=== PATIENT | female | born 1955 | race Caucasian/White ===

== ENCOUNTER 2023-05-14 05:23 | Emergency (ER) | payer MEDICARE, OTHER, SELFPAY ==
--- NOTE | ~2023-05-14 | CT_ITS ---
EXAMINATION: CT ABDOMEN AND PELVIS WITHOUT CONTRAST CLINICAL INFORMATION: Bilateral kidney stones. COMPARISON: Ultrasound from today TECHNIQUE: Multidetector volumetric imaging was performed from the superior aspect of the liver through the pubic symphysis. Sagittal and coronal reformatted images were obtained on the technologist's workstation. This CT examination was performed using dose optimization techniques as appropriate, variously including the following: *Automated exposure control *Adjustment of mA and/or kV according to patient size (this includes techniques or standardized protocols for targeted exams where dose is matched to indication/reason for exam; i.e. extremities or head) *Use of iterative reconstruction technique DLP: 560 mGy-cm. FINDINGS: LUNG BASES: The visualized lung bases are unremarkable. LIVER, GALLBLADDER, AND BILIARY TREE: The liver is normal in size, shape, and attenuation. No focal hepatic lesion or biliary ductal dilatation is present. The gallbladder is unremarkable with no evidence of radiopaque gallstones, gallbladder wall thickening, or obvious pericholecystic inflammatory changes. PANCREAS: Unremarkable. SPLEEN: Unremarkable. ADRENAL GLANDS: Unremarkable. KIDNEYS AND URETERS: Normal positioning of the kidneys. Cortical thinning at the upper pole of the right kidney. There is mild left hydronephrosis with prominent perinephric stranding. 0.4 cm calculus at the left ureteropelvic junction. This is 16 cm from the posterior axillary line. Additional left lower pole nonobstructing 0.4 cm calculus is 9 cm from the posterior axillary line. There are at least 3 right-sided calculi. The largest is seen anteriorly at the lower pole measuring 1.3 x 0.7 cm, 8.5 cm from the posterior axillary line. This measures 888 Hounsfield units. Right upper pole simple cyst. No specific follow-up recommended. BLADDER: Normally distended without wall thickening. There is a layering 0.3 cm calcification at the left posterior aspect of the bladder lumen. GASTROINTESTINAL TRACT: Small hiatal hernia. Normal caliber small bowel. No obstruction. Normal appendix. Scattered colonic diverticulosis throughout the colon. No wall thickening or adjacent inflammation. No free air or free fluid. ABDOMINAL WALL: No significant hernia is appreciated. LYMPH NODES: Normal. VASCULAR: Normal caliber aorta with mild atherosclerotic calcification. PELVIC VISCERA: The uterus and adnexa are unremarkable. OSSEOUS STRUCTURES: No acute or suspicious osseous abnormality. Mild degenerative change throughout the spine and of both hips. CT/CT kidney stone IMPRESSION: 1. Mild left hydronephrosis with a 0.4 cm calculus at the left ureteropelvic junction. Significant left perinephric stranding. 2. Additional nonobstructing bilateral renal calculi.
--- NOTE | ~2023-05-14 | US_ITS ---
EXAMINATION: US RETROPERITONEAL LIMITED (RENAL ONLY) CLINICAL INFORMATION: Left lower quadrant pain. COMPARISON: None available. TECHNIQUE: Real-time imaging of the kidneys. FINDINGS: RIGHT KIDNEY: 8.2 x 4.4 x 4.8 cm (SAG x AP x TRV). The kidney is normal in size, contour, and echogenicity. Renal cortical thickness is normal. 4 mm upper pole nonobstructing calculus. 9 mm calculus in the midpole. 7 mm nonobstructing calculus in the lower pole. Moderate hydronephrosis. LEFT KIDNEY: 11.6 x 6.9 x 6.5 cm (SAG x AP x TRV). The kidney is normal in size, contour, and echogenicity. Renal cortical thickness is normal. Moderate hydronephrosis. Moderate complex perinephric fluid and stranding. The urinary bladder is relatively well distended. Possible 4 mm calcification at the left ureterovesical junction. A right ureteral jet is seen. US/US renal BI IMPRESSION: Possible 4 mm impacted calculus at the left ureterovesical junction causing moderate left hydronephrosis. Moderate complex left perinephric fluid and stranding possibly represent calyceal rupture. Several right renal calculi including a 9 mm calculus at the midpole with moderate right hydronephrosis. Renal stone protocol CT should be considered for further and more complete evaluation of the above findings.
[2023-05-14 05:48] VITALS: BP 163/97; PULSE 74; RESP 18; TEMP 37.1; O2SAT 99; BMI 25.2
[2023-05-14 06:24] LABS: MANUAL DIFF FLAG NO
[2023-05-14 06:28] LABS: Appearance Urine Turbid; Basophils Percent Auto 0.3 % (0-2); Color Urine BROWN; Eosinophils Percent Auto 0.1 % (0-4); Glucose Urine UA Negative (Negative); Hemoglobin 13.6 g/dl (12.0-16.0); Imm Gran Abs Auto 0.03 X10*3/uL (0.00-0.03); Imm Gran Pct Auto 0.3 % (0.0-0.4); Leukocyte Esterase Urine Moderate (2+) (Negative); Lymphocytes Absolute Auto 1.1 X10*3/uL (1.2-4.9); Lymphocytes Percent Auto 8.9 % (20-40); Mean Corpuscular HGB Conc 32.4 g/dl (31.0-35.0); Mean Corpuscular Hemoglobin 28.8 pg (27.0-33.0); Mean Platelet Volume 9.4 fL (9.4-12.3); Monocytes Absolute Auto 0.6 X10*3/uL (0.1-1.2); Monocytes Percent Auto 4.7 % (2-11); Neutrophils Absolute Auto 10.1 x10*3/uL (2.0-8.3); Neutrophils Percent Auto 85.7 % (45-73); Nitrite Urine Negative (Negative); PH 5.5 (5.0-9.0); Platelet Count 365 X10*3/uL (160-400); Red Blood Count 4.72 X10*6/uL (4.20-5.50); Red Cell Distribution Width 13.2 % (11.0-16.0); Specific Gravity - Urine 1.025 (1.005-1.025); UMIC TRIGGER UACC YES; Urine Blood Large (3+) (Negative); Urine Ketones Negative (Negative); Urine Protein 30 (1+) mg/dL (Neg-Trace); White Blood Count 11.8 X10*3/uL (4.8-10.8)
[2023-05-14 06:30] LABS: UPreg QC Valid YES; Urine Pregnancy NEGATIVE (NEGATIVE)
--- NOTE | 2023-05-14 06:34 | ED.ABDPAIN ---
HPI - Abdominal Pain General Chief Complaint: Abdominal Pain Stated Complaint: left sided pain, discolored urine Time Seen by Provider: 05/14/23 06:31 Source: patient Mode of arrival: ambulatory Limitations: no limitations History of Present Illness HPI narrative: 67 yo female with history of HTN who presents to the ER for evaluation of new onset of painful urination and dark urine that started at 01:00 today. She states she woke up with the urge to urinate at 01:00, and then shortly after at 01:30. She noticed her urine was tea-colored and she had burning with urination. She was unable to sleep much after that. She then developed a dull, aching pain in her left lower portion of her abdomen. She denies any flank pain, nausea, vomiting, diarrhea. She had a normal bowel movement yesterday. She denied any fever or chills. No vaginal discharge or bleed MD elicited complaint: abdominal pain and other (Dysuria) Pertinent past history: none Onset (ago): hour(s) (6) Pain Consistency: constant Location: LLQ Severity: moderate Quality: aching and dull Radiation: none Migration to: no migration Exacerbating factors: other (Urination) Relieving factors: nothing Associated symptoms: other (Increased urinary urgency and frequency, change in urine color) Related Data Previous Rx's Medication Instructions Recorded cefuroxime axetil 500 mg tablet 500 mg PO BID 20 days #40 tabs 05/14/23 naproxen 375 mg tablet 375 mg PO BID #20 tabs 05/14/23 oxycodone 5 mg tablet 5 mg PO Q8H PRN severe pain (scale 05/14/23 score 7-10) #6 tabs prednisone 20 mg tablet 20 mg PO DAILY #3 tabs 05/14/23 tamsulosin 0.4 mg capsule (Flomax) 0.4 mg PO DAILY #14 caps 05/14/23 Allergies Allergy/AdvReac Type Severity Reaction Status Date / Time No Known Allergies Allergy Verified 05/14/23 06:08 Review of Systems Review of Systems Yes all other systems are reviewed and are negative [facility] Social History Social History Alcohol intake: current Alcohol intake frequency: holidays/special occasions only Smoked in Last 30 Days: No Use of substances other than those prescribed or required for medical reasons: No Advance Directives: No Advance Directives Information Provided: Yes Physical Exam ED Vital Signs: Vital Signs - 24 hr 05/14/23 05:48 05/14/23 06:39 05/14/23 08:37 Temperature 98.8 F 99.3 F 99.4 F Pulse Rate 74 68 82 Respiratory Rate 18 16 16 Blood Pressure 163/97 H 222/92 H 193/76 H Pulse Oximetry 99 98 98 Oxygen Delivery Method Room Air Room Air Room Air 05/14/23 10:21 Temperature 98.4 F Pulse Rate 78 Respiratory Rate 16 Blood Pressure 180/85 H Pulse Oximetry 97 Oxygen Delivery Method Room Air BMI result Body Mass Index 25.2 Appearance: Alert. Oriented X3. No acute distress. Head: normocephalic, atraumatic. Eyes: Pupils equal, round and reactive to light. ENT: Pharynx normal. No tonsillar swelling or exudate. Neck: Normal inspection. Neck supple. CVS: Normal heart rate and rhythm. Pulses normal. Respiratory: No respiratory distress. Breath sounds normal. Abdomen: Soft and nontender. +BS x4. No CVA tenderness Skin: Skin warm and dry. Normal skin color. Normal skin turgor. No rashes. Extremities: No lower extremity edema. No joint swelling. Neuro/psych: Oriented X 3. No motor deficit. No sensory deficit. CN II-XII intact. Normal speech and cognition. Course Consultations Consultation #1: Dr. Phan - Medical Decision Making Medical Decision Making MDM Narrative: 67 y/o female with history of hypertension presents the ER for evaluation of increased urinary frequency, dysuria, left lower quadrant pain. On arrival to the ER she is hypertensive to the 220 systolic. She states she is usually on 10 mg of lisinopril daily, has not followed up with her primary care doctor. She denies any headache, chest pain, vision changes. Her renal function is normal on her lab work, 10 mg of oral lisinopril has been ordered. Her urine test shows evidence of infection. She has a mild leukocytosis of 11.8. She is not febrile or tachycardic. She is not septic at this time. Need to rule out infected kidney stone, renal ultrasound has been ordered per patient request, she would like to defer CT scan today. IV fluids, IV ceftriaxone has been ordered. US showing bilateral stones w/ bilateral hydro. Dr. Phan from urology was consulted who recommended CT stone protocol. Images reviewed and d/w Dr. Phan. Patient reports signficiant improvement in her pain. She remains afebrile, not tachycardic. Not septic. De. Phan recommending ceftin x20 days, prednisone, flomax and pain control along with outpatient follow up with her - plan d/w patient who is in agreement. return precautions discussed as well. comfortable w/ d/c home Differential Diagnosis Differential Diagnoses: The differential diagnosis associated with the presentation includes UTI, pyelonephritis, kidney stone, diverticulitis Admission/Observation Consideration of admission/observation: Escalation of care including admission/observation considered considered admission given CT findings, however patient symptomatically improved so she was able to be safely discharged home with plan for close outpatient follow up Consult Healthcare Provider Management of the patient was discussed with: [employer] Dr. Phan Lab Data MDM Lab Attestation statement: I reviewed the patient's lab results. mild leukocytosis, normal kidney function 05/14/23 06:18 05/14/23 06:18 Labs: Lab Results 05/14/23 05/14/23 05/14/23 Range/Units 06:18 06:18 06:18 WBC 11.8 H (4.8-10.8) X10*3/uL RBC 4.72 (4.20-5.50) X10*6/uL Hgb 13.6 (12.0-16.0) g/dl Hct 42.0 (37.0-47.0) % MCV 89.0 (80.0-98.0) fL MCH 28.8 (27.0-33.0) pg MCHC 32.4 (31.0-35.0) g/dl RDW 13.2 (11.0-16.0) % Plt Count 365 (160-400) X10*3/uL MPV 9.4 (9.4-12.3) fL Immature Gran % (Auto) 0.3 (0.0-0.4) % Neut % (Auto) 85.7 H (45-73) % Lymph % (Auto) 8.9 L (20-40) % [place] % (Auto) 4.7 (2-11) % Eos % (Auto) 0.1 (0-4) % Baso % (Auto) 0.3 (0-2) % Lymph # (Auto) 1.1 L (1.2-4.9) X10*3/uL [place] # (Auto) 0.6 (0.1-1.2) X10*3/uL Eos # (Auto) 0.0 (0.0-0.4) X10*3/uL Baso # (Auto) 0.0 (0.0-0.2) X10*3/uL Abs Immat Gran (auto) 0.03 (0.00-0.03) X10*3/uL Absolute Neuts (auto) 10.1 H (2.0-8.3) x10*3/uL Absolute Nucleated RBC 0.000 (0.0-0.012) X10*3/uL Nucleated RBC % (auto) 0.0 (0.0-0.2) /100WBC Sodium 139 (135-145) mmol/L Potassium 3.8 (3.3-5.1) mmol/L Chloride 106 (96-108) mmol/L Carbon Dioxide 23 (22-29) mmol/L Anion Gap 14 (12-20) BUN 20 H (9-16) mg/dL Creatinine 1.05 (0.5-1.4) mg/dL Estim Creat Clear Calc 49.3 Estimated GFR 52 Random Glucose 126 H (60-115) mg/dL Calcium 9.7 (8.4-10.2) mg/dL Urine Color BROWN Urine Appearance Turbid Urine pH 5.5 (5.0-9.0) Ur Specific Leopold 1.025 (1.005-1.025) Urine Protein 30 (1+) H (Neg-Trace) mg/dL Urine Glucose (UA) Negative (Negative) mg/dL Urine Ketones Negative (Negative) mg/dL Urine Blood Large (3+) H (Negative) Urine Nitrite Negative (Negative) Ur Leukocyte Esterase Moderate (2+) H (Negative) Urine RBC >20 H (0-2) /HPF Urine WBC 21-50 H (0-5) /HPF Ur Squamous Epith Cells 3-5 (0-2) /HPF Urine Bacteria 2+ (None Seen) Hyaline Casts 0-2 (0-2) /LPF Urine Test (NEGATIVE) 05/14/23 Range/Units 06:18 WBC (4.8-10.8) X10*3/uL RBC (4.20-5.50) X10*6/uL Hgb (12.0-16.0) g/dl Hct (37.0-47.0) % MCV (80.0-98.0) fL MCH (27.0-33.0) pg MCHC (31.0-35.0) g/dl RDW (11.0-16.0) % Plt Count (160-400) X10*3/uL MPV (9.4-12.3) fL Immature Gran % (Auto) (0.0-0.4) % Neut % (Auto) (45-73) % Lymph % (Auto) (20-40) % [place] % (Auto) (2-11) % Eos % (Auto) (0-4) % Baso % (Auto) (0-2) % Lymph # (Auto) (1.2-4.9) X10*3/uL [place] # (Auto) (0.1-1.2) X10*3/uL Eos # (Auto) (0.0-0.4) X10*3/uL Baso # (Auto) (0.0-0.2) X10*3/uL Abs Immat Gran (auto) (0.00-0.03) X10*3/uL Absolute Neuts (auto) (2.0-8.3) x10*3/uL Absolute Nucleated RBC (0.0-0.012) X10*3/uL Nucleated RBC % (auto) (0.0-0.2) /100WBC Sodium (135-145) mmol/L Potassium (3.3-5.1) mmol/L Chloride (96-108) mmol/L Carbon Dioxide (22-29) mmol/L Anion Gap (12-20) BUN (9-16) mg/dL Creatinine (0.5-1.4) mg/dL Estim Creat Clear Calc Estimated GFR Random Glucose (60-115) mg/dL Calcium (8.4-10.2) mg/dL Urine Color Urine Appearance Urine pH (5.0-9.0) Ur Specific Leopold (1.005-1.025) Urine Protein (Neg-Trace) mg/dL Urine Glucose (UA) (Negative) mg/dL Urine Ketones (Negative) mg/dL Urine Blood (Negative) Urine Nitrite (Negative) Ur Leukocyte Esterase (Negative) Urine RBC (0-2) /HPF Urine WBC (0-5) /HPF Ur Squamous Epith Cells (0-2) /HPF Urine Bacteria (None Seen) Hyaline Casts (0-2) /LPF Urine Test NEGATIVE (NEGATIVE) Independent Interpretation I performed an independent interpretation of an: Ultrasound and CT Scan Interpretation: US reviewed - stones and hydro appreciated, agree w/ radiology read CT scan reviewed - distal ureteral stone w/ mild hydro, agree w/ radiology read Radiology Impression Discussion of test interpretation with radiology: I have reviewed the radiologist's reading. Radiologist Impression: US/US renal BI IMPRESSION: Possible 4 mm impacted calculus at the left ureterovesical junction causing moderate left hydronephrosis. Moderate complex left perinephric fluid and stranding possibly represent calyceal rupture. ? Several right renal calculi including a 9 mm calculus at the midpole with moderate right hydronephrosis. ? Renal stone protocol CT should be considered for further and more complete evaluation of the above findings. ?CT/CT kidney stone IMPRESSION: 1.? Mild left hydronephrosis with a 0.4 cm calculus at the left ureteropelvic junction. Significant left perinephric stranding. 2.? Additional nonobstructing bilateral renal calculi. Prescription Management I considered prescription management with: Pain Medication, Antibiotic and Other (flomax and steroids) Chronic Conditions Patient?s care impacted by: Hypertension poorly controlled BP Medications Administered Discontinued Medications Generic Name Dose Route Start Last Admin Trade Name Freq PRN Reason Stop Dose Admin Acetaminophen 975 mg 05/14/23 07:45 05/14/23 07:55 Acetaminophen 325 Mg Tablet PO 05/14/23 07:46 975 mg ONCE ONE Administration Sodium Chloride 1,000 mls @ 999 mls/hr 05/14/23 06:45 05/14/23 07:54 Ns IVCONT 05/14/23 07:45 Infused .Q1H1M KARELY Infusion Ceftriaxone Sodium 1 gm/ 50 mls @ 100 mls/hr 05/14/23 06:41 05/14/23 07:54 Sodium Chloride IV 05/14/23 07:10 Infused ONCE ONE Infusion Sodium Chloride 500 mls @ 500 mls/hr 05/14/23 11:00 05/14/23 12:19 Ns IV 05/14/23 11:59 Infused .Q1H KARELY Infusion Ketorolac Tromethamine 15 mg 05/14/23 07:45 05/14/23 07:55 Ketorolac Tromethamine 15 Mg/Ml Vial IVPUSH 05/14/23 07:46 15 mg ONCE ONE Administration Lisinopril 10 mg 05/14/23 06:51 05/14/23 07:18 Lisinopril 10 Mg Tablet PO 05/14/23 06:52 10 mg ONCE ONE Administration Protocol Critical Care Time Critical Care Time Critical Care Time: Yes Total Critical Care Time: 36 Attestation: I have personally provided critical care time exclusive of time spent on separately billable procedures. Time includes review of lab data, radiology results, discussion with consultants, and monitoring for potential decompensation. Intervention performed as documented. Discharge Plan Discharge Clinical Impression: Hydronephrosis with renal calculous obstruction, Acute UTI Patient Disposition: Home, Self-Care Instructions: Urinary Tract Infection in Women (DC), Ureteral Stones (ED) Additional Instructions: CT scan today showed a 0.4cm stone down near the bladder. You also have a UTI Take the prescribed medications as directed per recommendations of the Urology doctor Take the prescribed antibiotic medication as directed - start it tonight. you were given 1st dose today in the ER. Follow up with Urology - call for an appointment. they are aware of your case If you develop new or worsening symptoms call 911 or come back to the ER for further evaluation. Prescriptions: New prednisone 20 mg tablet 20 mg PO DAILY Qty: 3 0RF naproxen 375 mg tablet 375 mg PO BID Qty: 20 0RF tamsulosin [Flomax] 0.4 mg capsule 0.4 mg PO DAILY Qty: 14 0RF cefuroxime axetil 500 mg tablet 500 mg PO BID 20 Days Qty: 40 0RF oxycodone 5 mg tablet 5 mg PO Q8H PRN (Reason: severe pain (scale score 7-10)) Qty: 6 0RF Rx Instructions: Partial Fill upon patient request. Referrals: [facility] [place] [facility] [Provider Group] (uti, stone w/ hydro) Interventions: ED Discharge Assessment Last Done: 05/14/23 12:19 Discharge Date/Time: 05/14/23 12:20
[2023-05-14 06:36] LABS: Bacteria Urine 2+ (None Seen); Hyaline Casts Urine 0-2 /LPF (0-2); RBC Urine >20 /HPF (0-2); UACC Culture Trigger YES; WBC Urine 21-50 /HPF (0-5)
[2023-05-14 06:39] VITALS: BP 222/92; PULSE 68; RESP 16; TEMP 37.4; O2SAT 98
[2023-05-14 06:47] LABS: Anion Gap 14 (12-20); Blood Urea Nitrogen 20 mg/dL (9-16); Calcium 9.7 mg/dL (8.4-10.2); Carbon Dioxide 23 mmol/L (22-29); Chloride 106 mmol/L (96-108); Creatinine Clr Calc Pharmacy 49.3; Estimated Glomerular Filt Rate 52; Glucose Random 126 mg/dL (60-115); Potassium 3.8 mmol/L (3.3-5.1); Sodium 139 mmol/L (135-145)
[2023-05-14] MEDS: cefTRIAXone sodium 1 GM in 0.9 % Sodium Chloride 50 ML IV (06:53)
[2023-05-14] MEDS: 0.9 % Sodium Chloride 1,000 ML 999 ML IVCONT (06:53)
[2023-05-14] MEDS: lisinopriL 10 MG TABLET PO (07:18)
[2023-05-14] MEDS: Acetaminophen 325 MG TABLET 975 MG PO (07:55)
[2023-05-14] MEDS: Ketorolac Tromethamine 15 MG/ML VIAL IVPUSH (07:55)
[2023-05-14 08:37] VITALS: BP 193/76; PULSE 82; RESP 16; TEMP 37.4; O2SAT 98
[2023-05-14 10:21] VITALS: BP 180/85; PULSE 78; RESP 16; TEMP 36.9; O2SAT 97
[2023-05-14] MEDS: 0.9 % Sodium Chloride 500 ML IV (11:25)
== END 2023-05-14 12:20 | disposition home or self-care (01) ==
PROVIDERS: Emergency Provider Internal Medicine
DX: N13.2 Hydronephrosis with renal and ureteral calculous obstruction (principal); N39.0 Urinary tract infection, site not specified; R10.2 Pelvic and perineal pain; Z79.899 Other long term (current) drug therapy
CPT/HCPCS: 36415; 74176; 76775; 80048; 81001; 81025; 85025; 87086; 87088; 87186; 96361; 96374; 96375; 99285; J0696; J1885

== ENCOUNTER 2023-05-23 12:40 | Emergency (ER) | payer MEDICARE, OTHER, SELFPAY ==
--- NOTE | ~2023-05-23 | US_ITS ---
EXAMINATION: US RETROPERITONEAL LIMITED (RENAL ONLY) CLINICAL INFORMATION: Hematuria. COMPARISON: CT dated 05/14/2023 TECHNIQUE: Real-time imaging by the ironmolder FINDINGS: The right kidney is 9.4 x 5 x 4.4 cm. Limited evaluation. No convincing evidence for hydronephrosis. Echogenic focus in the lower pole may represent a nonobstructing stone measures 5 x 6 mm. Echogenic focus upper pole measuring 2 mm may represent a nonobstructing calculus. Left kidney is measuring 12 x 6 x 6 cm. There is hydronephrosis here. Moderate. May well be decreased compared with previous CT but difficult to compare different modalities. Proximal ureter cannot be seen due to bowel gas. Imaging of the bladder shows a right ureteral jet. A left ureteral jet is not seen US/US renal BI IMPRESSION: Limited evaluation. There is felt to be hydronephrosis on left which is moderate. This may be decreasing from CT of 05/14/2023 but this cannot be said with certainty. No evidence of ureteral jet on the left
--- NOTE | 2023-05-23 13:19 | ED_ITS ---
HPI - Abdominal Pain General Chief Complaint: Abdominal Pain Stated Complaint: kidney stone Time Seen by Provider: 05/23/23 15:56 Source: patient and RN notes reviewed Mode of arrival: ambulatory Limitations: no limitations History of Present Illness HPI narrative: This is a [id number], with a past medical history of hypertension and recent diagnosis of UTI and renal calculi, presenting to the emergency d [facility] with complaints of hematuria and left lower quadrant pain since this morning. Patient was seen here on 05/14/2023 where she was diagnosed with a UTI. US revealed bilateral stones with bilateral hydronephrosis. Dr. Jaramillo from urology was consulted who recommended CT stone protocol, which revealed mild left hydronephrosis with a 0.4cm calculus at left uteropelvic junction, with significant left perinephric stranding and nonobstructing bilateral renal calculi. She was discharged on prednisone, naproxen, flomax, ceftin and oxycodone which she has been taking as prescribed. She was alarmed as she noticed blood in her urine with left lower suprapubic tenderness. She has had no fevers, chills, nausea, vomiting, or diarrhea. No dysuria. She has follow up with urology on June 10. No other complaints or concerns at this time. MD elicited complaint: abdominal pain Pertinent past history: kidney stones and past UTI Onset (ago): day(s) Pain Consistency: constant Location: LLQ Severity: moderate Quality: cramping Radiation: none Migration to: no migration Exacerbating factors: nothing Relieving factors: nothing Associated symptoms: denies other symptoms Related Data Previous Rx's Medication Instructions Recorded cefuroxime axetil 500 mg tablet 500 mg PO BID 20 days #40 tabs 05/14/23 naproxen 375 mg tablet 375 mg PO BID #20 tabs 05/14/23 oxycodone 5 mg tablet 5 mg PO Q8H PRN severe pain (scale 05/14/23 score 7-10) #6 tabs prednisone 20 mg tablet 20 mg PO DAILY #3 tabs 05/14/23 tamsulosin 0.4 mg capsule (Flomax) 0.4 mg PO DAILY #14 caps 05/14/23 levofloxacin 750 mg tablet 750 mg PO DAILY 7 days #7 tabs 05/23/23 Allergies Allergy/AdvReac Type Severity Reaction Status Date / Time latex Allergy Unknown Verified 05/23/23 13:19 Review of Systems Review of Systems Constitutional: No Weight loss, No Fever, No Chills, No Night Sweats, No Fatigue, No Malaise ENT/Mouth: No Hearing loss, No Ear Pain, No Nasal Congestion, No Sinus Pain, No Hoarseness, No sore throat, No Rhinorrhea, No Swallowing Difficulty Eyes: No Eye Pain, No Swelling, No Redness, No Foreign Body, No Discharge, No Vision Changes Cardiovascular: No Chest Pain, No SOB, No Dyspnea on Exertion, No Orthopnea, No Edema, No Palpitations Respiratory: No Cough, No Sputum, No Wheezing, No Smoke Exposure, No Dyspnea Gastrointestinal: No Nausea, No Vomiting, No Diarrhea, No Constipation, + Abdominal pain, No Hematochezia, No Melena Genitourinary: No irregular bleeding, No Dysuria, No Urinary Frequency, + Hematuria, No Urinary Incontinence/retention, No Urgency, No Flank Pain, No Urinary Flow Changes, No Hesitancy Musculoskeletal: No joint pain, No Myalgias, No Joint Swelling Skin: No Skin Lesions, No rash Neuro: No Weakness, No Numbness, No Paresthesias, No Loss of Consciousness, No Dizziness, No Headache Psych: No Anxiety/Panic, No Depression, No SI/HI/AH/VH, No Social Issues, Heme/Lymph: No Bruising, No Bleeding,No Lymphadenopathy Endocrine: No Polyuria, No Polydipsia, No Temperature Intolerance Yes all other systems are reviewed and are negative Constitutional: Reports as per [facility] Social History Social History Alcohol intake: current Alcohol intake frequency: holidays/special occasions only Advance Directives: No Advance Directives Information Provided: Yes Physical Exam ED Vital Signs: Vital Signs - 24 hr 05/23/23 13:20 05/23/23 15:46 05/23/23 20:36 Temperature 97.9 F 98.2 F 97.9 F Pulse Rate 89 60 79 Respiratory Rate 16 18 18 Blood Pressure 179/92 H 105/64 221/78 H Pulse Oximetry 100 100 98 Oxygen Delivery Method Room Air Room Air Room Air BMI result Body Mass Index 25.0 Const General: cooperative, comfortable and no acute distress Orientation/consciousness: patient oriented x3 Limitations: no limitations HENMT Head: Yes normal to inspection, Yes normocephalic and Yes atraumatic Ears: hearing grossly normal bilaterally General nose exam: Normal external nose present Face and sinus: Yes normal facial exam Mouth: Normal oral and palatal mucosa present, oropharynx normal and moist mucous membranes Throat: Yes posterior oropharynx normal Eyes General: appearance normal, both eyes and all related structures Eyelids: Yes eyelids normal Conjunctivae: conjunctivae normal Sclerae: sclerae normal Pupils: Equal, round and reactive pupils present EOM: EOMs intact bilaterally Neck Neck: Yes normal visual inspection, Yes full ROM and Yes no lymphadenopathy Lymphatic: no lymphadenopathy noted Chest Chest palpation & inspection: normal inspection of the chest Resp Effort & Inspection: normal respiratory effort and able to speak in complete sentences Auscultation: clear to auscultation bilaterally, no crackles, no rales, no rhonchi and no wheezes Cardio Rate: regular rate Rhythm: regular rhythm Heart sounds: S1 normal heart sound present and S2 normal heart sound present GI Other: Mild TTP to left lower suprapubic region, no rebound or guarding. Inspection: Yes normal to inspection Skin General skin exam: no rashes or lesions noted Trauma: no lacerations or abrasions Wounds: no wounds Neuro General: patient oriented x3 and moves all extremities Cranial nerves: Yes Equal, round and reactive pupils present Extrem General: Yes normal to inspection Right upper extremity: normal to inspection Left upper extremity: normal to inspection Right lower extremity: normal to inspection Left lower extremity: normal to inspection Course Course Course Narrative: This is an RME: Additional HPI, ROS, PE not included below will be deferred to primary provider. Patient is a 67-year-old female who presents to the emergency department for evaluation of genitourinary complaint. She reports 9 days ago she was seen in the emergency department diagnosed with a kidney stone, and prescribed cefuroxime, for UTI. Last night she developed suprapubic/left groin pain, and is concerned about dark urine despite drinking fluids. Reevaluation(s) Reevaluation #1: Ultrasound revealing moderate left hydronephrosis, no kidney stone seen. Right kidney with non-obstructing stone measuring 5 x 6 mm an echogenic focus right upper pole measuring 2 mm representing a nonobstructing calculus. I discussed this with Dr. Hensley, who suggest switching antibiotics given mild leukocytosis, large blood, positive nitrites, leuk esterases rbc's and wbc's in urine. Discussed these results and consult with patient. Wheels which antibiotic to Levaquin. Advised to call Urology office on Thursday for closer follow-up. Patient understands and agrees with plan. Patient given 1st dose of antibiotic in the department a. Educated the importance of returning should any new or worsening symptoms occur. Patient understands and agrees with plan. Patient stable for discharge. Medical Decision Making Medical Decision Making [facility] Narrative: [id number]-female, with a past medical history of hypertension and recent diagnosis of UTI and renal calculi, presenting to the emergency department with complaints of hematuria and left lower quadrant pain since this morning. Extensive review of previous emergency department visit with multiple consultations. Pt has been taking medications as directed, but has hematuria starting this morning. Renal US obtained. Consult with Urology (see course). VSS. Lab work up revealing mild leukocytosis. Likely resistant UTI vs passed kidney stone. Will switch ABX per urology recommendations and have close follow up. Pt understands and agrees with plan. VSS. Pt afebrile. Differential Diagnosis Differential Diagnoses: The differential diagnosis associated with the presentation includes nephrolithiasis, pyelonephritis, UTI, hydronephrosis Admission/Observation Consideration of admission/observation: Escalation of care including admission/observation considered Escalation of care and possible hospitalization to questionable resistant urinary tract infection Lab Data [facility] Lab Attestation statement: I reviewed the patient's lab results. see course, above 05/23/23 13:39 05/23/23 13:39 Labs: Lab Results 05/23/23 05/23/23 05/23/23 Range/Units 13:36 13:39 13:39 WBC 11.8 H (4.8-10.8) X10*3/uL RBC 4.08 L (4.20-5.50) X10*6/uL Hgb 11.8 L (12.0-16.0) g/dl Hct 36.7 L (37.0-47.0) % MCV 90.0 (80.0-98.0) fL MCH 28.9 (27.0-33.0) pg MCHC 32.2 (31.0-35.0) g/dl RDW 13.2 (11.0-16.0) % Plt Count 503 H D (160-400) X10*3/uL MPV 9.1 L (9.4-12.3) fL Immature Gran % (Auto) 0.7 H (0.0-0.4) % Neut % (Auto) 75.9 H (45-73) % Lymph % (Auto) 13.9 L (20-40) % Bailey % (Auto) 8.7 (2-11) % Eos % (Auto) 0.5 (0-4) % Baso % (Auto) 0.3 (0-2) % Lymph # (Auto) 1.6 (1.2-4.9) X10*3/uL Bailey # (Auto) 1.0 (0.1-1.2) X10*3/uL Eos # (Auto) 0.1 (0.0-0.4) X10*3/uL Baso # (Auto) 0.0 (0.0-0.2) X10*3/uL Abs Immat Gran (auto) 0.08 H (0.00-0.03) X10*3/uL Absolute Neuts (auto) 9.0 H (2.0-8.3) x10*3/uL Absolute Nucleated RBC 0.000 (0.0-0.012) X10*3/uL Nucleated RBC % (auto) 0.0 (0.0-0.2) /100WBC Sodium 138 (135-145) mmol/L Potassium 4.6 D (3.3-5.1) mmol/L Chloride 103 (96-108) mmol/L Carbon Dioxide 25 (22-29) mmol/L Anion Gap 15 (12-20) BUN 16 (9-16) mg/dL Creatinine 0.98 (0.5-1.4) mg/dL Estim Creat Clear Calc 52.8 Estimated GFR 57 Random Glucose 102 (60-115) mg/dL Calcium 10.4 H D (8.4-10.2) mg/dL Total Bilirubin 0.3 (0.0-1.0) mg/dL AST 15 (5-31) U/L ALT 28 (0-31) U/L Alkaline Phosphatase 94 (39-117) U/L Total Protein 7.5 (6.5-8.0) g/dL Albumin 3.9 (3.5-5.0) g/dL Urine Color DK YELLOW Urine Appearance Cloudy Urine pH 5.0 (5.0-9.0) Ur Specific [place] 1.025 (1.005-1.025) Urine Protein 100 (2+) H (Neg-Trace) mg/dL Urine Glucose (UA) Negative (Negative) mg/dL Urine Ketones Trace (Negative) mg/dL Urine Blood Large (3+) H (Negative) Urine Nitrite Positive H (Negative) Ur Leukocyte Esterase Trace H (Negative) Urine RBC >20 H (0-2) /HPF Urine WBC 11-20 H (0-5) /HPF Ur Squamous Epith Cells 6-10 (0-2) /HPF Urine Bacteria None Seen (None Seen) Hyaline Casts 0-2 (0-2) /LPF Radiology Impression Discussion of test interpretation with radiology: I have reviewed the radiologist's reading. Radiologist Impression: EXAMINATION: US RETROPERITONEAL LIMITED (RENAL ONLY) CLINICAL INFORMATION: Hematuria. COMPARISON: CT dated 05/14/2023 TECHNIQUE: Real-time imaging by the whistle punk FINDINGS: The right kidney is 9.4 x 5 x 4.4 cm. Limited evaluation. No convincing evidence for hydronephrosis. Echogenic focus in the lower pole may represent a nonobstructing stone measures 5 x 6 mm. Echogenic focus upper pole measuring 2 mm may represent a nonobstructing calculus. Left kidney is measuring 12 x 6 x 6 cm. There is hydronephrosis here. Moderate. May well be decreased compared with previous CT but difficult to compare different modalities. Proximal ureter cannot be seen due to bowel gas. Imaging of the bladder shows a right ureteral jet. A left ureteral jet is not seen US/US renal BI IMPRESSION: Limited evaluation. There is felt to be hydronephrosis on left which is moderate. This may be decreasing from CT of 05/14/2023 but this cannot be said with certainty. No evidence of ureteral jet on the left Dictated By: Gustavo Kam MD Signed By: <Electronically signed by Gustavo Kam MD in OV> 05/23/231937 DD/ 47 TD/TT:? 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 External Record Review External record reviewed: Inpatient record, Office record, Outpatient record, Prior outpatient labs, Prior outpatient radiology, Primary care record and Outside ED record Extensive review of previous emergency department visit Prescription Management I considered prescription management with: Antibiotic Medications Administered Discontinued Medications Generic Name Dose Route Start Last Admin Trade Name Vernon PRN Reason Stop Dose Admin Acetaminophen 975 mg 05/23/23 18:09 05/23/23 18:26 Acetaminophen 325 Mg Tablet PO 05/23/23 18:10 650 mg ONCE ONE Administration Sodium Chloride 1,000 mls @ 999 mls/hr 05/23/23 17:02 05/23/23 17:07 Ns IV 05/23/23 18:02 Infused .Q1H1M ONE Infusion Levofloxacin 750 mg 05/23/23 20:33 05/23/23 20:49 Levofloxacin 750 Mg Tablet PO 05/23/23 20:34 750 mg ONCE ONE Administration Discharge Plan Discharge Clinical Impression: Acute UTI, Calculus of kidney Patient Disposition: Home, Self-Care Instructions: Kidney Stones (ED), Urinary Tract Infection in Women (ED) Additional Instructions: Your urine sample appears to still be infected, despite you taking the antibiotics as directed. Dr. Lundberg, urologist, recommends switching over to a different antibiotic. Please take as prescribed. Please call their office on Thursday morning regarding this visit. Please drink plenty of fluids get plenty of rest. If any new or worsening symptoms occur, please return for re-evaluation. Prescriptions: New levofloxacin 750 mg tablet 750 mg PO DAILY 7 Days Qty: 7 0RF No Action prednisone 20 mg tablet 20 mg PO DAILY Qty: 3 0RF naproxen 375 mg tablet 375 mg PO BID Qty: 20 0RF tamsulosin [Flomax] 0.4 mg capsule 0.4 mg PO DAILY Qty: 14 0RF cefuroxime axetil 500 mg tablet 500 mg PO BID 20 Days Qty: 40 0RF oxycodone 5 mg tablet 5 mg PO Q8H PRN (Reason: severe pain (scale score 7-10)) Qty: 6 0RF Rx Instructions: Partial Fill upon patient request. Referrals: [facility] [Provider Group] Interventions: ED Discharge Assessment Last Done: 05/23/23 20:51 Discharge Date/Time: 05/23/23 20:52
[2023-05-23 13:20] VITALS: BP 179/92; PULSE 89; RESP 16; TEMP 36.6; O2SAT 100; BMI 25.0
[2023-05-23] MEDS: 0.9 % Sodium Chloride 1,000 ML 999 ML IV (13:30)
[2023-05-23 13:44] LABS: MANUAL DIFF FLAG NO
[2023-05-23 13:45] LABS: Appearance Urine Cloudy; Color Urine DK YELLOW; Glucose Urine UA Negative (Negative); Leukocyte Esterase Urine Trace (Negative); Nitrite Urine Positive (Negative); Specific Gravity - Urine 1.025 (1.005-1.025); UMIC TRIGGER UACC YES; Urine Blood Large (3+) (Negative); Urine Ketones Trace mg/dL (Negative); Urine Protein 100 (2+) mg/dL (Neg-Trace)
[2023-05-23 13:45] LABS: Basophils Percent Auto 0.3 % (0-2); Eosinophils Absolute Auto 0.1 X10*3/uL (0.0-0.4); Eosinophils Percent Auto 0.5 % (0-4); Hematocrit 36.7 % (37.0-47.0); Hemoglobin 11.8 g/dl (12.0-16.0); Imm Gran Abs Auto 0.08 X10*3/uL (0.00-0.03); Imm Gran Pct Auto 0.7 % (0.0-0.4); Lymphocytes Absolute Auto 1.6 X10*3/uL (1.2-4.9); Lymphocytes Percent Auto 13.9 % (20-40); Mean Corpuscular HGB Conc 32.2 g/dl (31.0-35.0); Mean Corpuscular Hemoglobin 28.9 pg (27.0-33.0); Mean Platelet Volume 9.1 fL (9.4-12.3); Monocytes Percent Auto 8.7 % (2-11); Neutrophils Percent Auto 75.9 % (45-73); Platelet Count 503 X10*3/uL (160-400); Red Blood Count 4.08 X10*6/uL (4.20-5.50); Red Cell Distribution Width 13.2 % (11.0-16.0); White Blood Count 11.8 X10*3/uL (4.8-10.8)
[2023-05-23 13:51] LABS: Bacteria Urine None Seen (None Seen); Hyaline Casts Urine 0-2 /LPF (0-2); RBC Urine >20 /HPF (0-2); UACC Culture Trigger YES
[2023-05-23 14:00] LABS: Alanine Aminotransferase 28 U/L (0-31); Albumin Level 3.9 g/dL (3.5-5.0); Alkaline Phosphatase 94 U/L (39-117); Anion Gap 15 (12-20); Aspartate Amino Transferase 15 U/L (5-31); Bilirubin Total 0.3 mg/dL (0.0-1.0); Blood Urea Nitrogen 16 mg/dL (9-16); Calcium 10.4 mg/dL (8.4-10.2); Carbon Dioxide 25 mmol/L (22-29); Chloride 103 mmol/L (96-108); Creatinine Clr Calc Pharmacy 52.8; Estimated Glomerular Filt Rate 57; Glucose Random 102 mg/dL (60-115); Potassium 4.6 mmol/L (3.3-5.1); Sodium 138 mmol/L (135-145); Total Protein 7.5 g/dL (6.5-8.0)
[2023-05-23 15:46] VITALS: BP 105/64; PULSE 60; RESP 18; TEMP 36.8; O2SAT 100
[2023-05-23] MEDS: Acetaminophen 325 MG TABLET 975 MG PO (18:26)
--- NOTE | 2023-05-23 18:28 | PC.NURSE ---
us at the bedside/ pt was medicated for pain she declined full dose of tylenol, accepted 650mg
[2023-05-23 20:36] VITALS: BP 221/78; PULSE 79; RESP 18; TEMP 36.6; O2SAT 98
[2023-05-23] MEDS: levoFLOXacin 750 MG TABLET PO (20:49)
== END 2023-05-23 20:52 | disposition home or self-care (01) ==
PROVIDERS: Nurse Practitioner Family; Emergency Provider Internal Medicine
DX: N39.0 Urinary tract infection, site not specified (principal); N20.0 Calculus of kidney; I10 Essential (primary) hypertension; Z79.899 Other long term (current) drug therapy
CPT/HCPCS: 36415; 76775; 80053; 81001; 85025; 87086; 96360; 96361; 99284; 99285

== ENCOUNTER 2023-06-08 08:28 | Outpatient (AMB) | payer MEDICARE, OTHER, SELFPAY ==
--- NOTE | 2023-06-08 08:30 | MHC.OFFVIS ---
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
--- NOTE | 2023-06-08 08:31 | MHC.OFFVIS ---
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: No Accompanied by: Self / Same As Patient Allergies Penicillins Allergy (Mild, Verified 06/08/23 08:34) Unknown sulfamethoxazole [From Bactrim] Allergy (Mild, Verified 06/08/23 08:34) Unknown trimethoprim [From Bactrim] Allergy (Mild, Verified 06/08/23 08:34) Unknown latex Allergy (Verified 05/23/23 13:19) Unknown cefuroxime Adverse Reaction (Mild, Verified 06/08/23 08:40) Stomach Upset levofloxacin Adverse Reaction (Verified 06/08/23 08:37) Stomach Upset Medication List - Last Reconciled 06/08/23 by Kike Brito MD lisinopril 20 mg PO DAILY HPI HPI Comments History of Present Illness Details Jamilah is a 68-year-old female who is here as a new patient evaluation for kidney stones. The patient had acute onset of left flank pain and was seen in the emergency room on 05/14/2023 which noted a 4 mm left proximal ureteral stone with mild hydronephrosis and bilateral renal calculi. Review of CT imagin mm left proximal ureteral stone, 4 mm left renal stone, 3 stones in the right kidney largest 13 mm (in review of the films the other 2 stones are about 3 to 4 mm) The patient thinks she passed the left ureteral stone she went back to the ED on 05/23/2023 passing clots, she states that she was told at that time that she was likely passing the stone. In review of the renal ultrasound done on 05/23/2023 there is moderate left hydronephrosis, left ureteral jet not visualized. Examination today there is mild left CVA tenderness no left side or bladder tenderness. Urinalysis 1+ blood no signs of infection Plan: Left hydronephrosis. Left ureteral stone. Patient may have passed stone will repeat renal ultrasound Bilateral renal calculi largest on the right side measuring 13 mm discussed ESWL. Discussed risks to include but not limited to, blood in the urine, bruising to the skin, kidney hematoma, possible need for another procedure if a stone fragment obstructs the ureter while passing, possible need to repeat procedure if stone is not completely fragmented. Consent obtained for Right ESWL Metabolic BRO-- 24 hr urine PFSH Medical History HTN (hypertension) UTI (urinary tract infection) Surgical History No pertinent past surgical history Family History Father No problems noted. Mother Kidney calculi Social History Alcohol intake: current Alcohol intake frequency: holidays/special occasions only Patient Tobacco Use Status: Never used Tobacco Review of Systems Const All systems reviewed & are unremarkable except as noted in HPI and below Reports no additional complaints Eyes Reports no additional complaints ENT Reports no additional complaints Card Denies dyspnea Resp Denies cough and Denies dyspnea GI Reports no additional complaints Reports no additional complaints Musc Reports no additional complaints Skin/Breast Denies rash and Denies unusual bruising Neuro Reports no additional complaints Psych Reports no additional complaints Endo Reports no additional complaints Manuel/Lymph Reports no additional complaints Aller/Immun Reports no additional complaints Physical Exam Const General: cooperative, healthy appearing and no acute distress Orientation/consciousness: patient oriented x3 HEENT Head: Yes normal to inspection, Yes normocephalic and Yes atraumatic Eyes Conjunctivae: conjunctivae normal Neck Neck: Yes normal visual inspection and Yes trachea midline Chest Chest palpation & inspection: normal inspection of the chest Resp Effort & Inspection: normal respiratory effort Cardio Rate: regular rate GI Inspection: Yes normal to inspection Palpation (GI): Soft to palpation General: Yes CVA tenderness (mild left) Back/Spine/Pelvis Back: CVA tenderness (mild left) Skin General skin exam: no rashes or lesions noted Neuro General: patient oriented x3 Extrem General: No edema Psych Appearance: grossly normal Results AMB Urinalysis, Automated UA Leukoctes 0 Keon/uL Last Edit by LISA Kraus on 06/08/23 08:49 UA Nitrite Negative Last Edit by LISA Kraus on 06/08/23 08:49 UA Urobilinogen 0.2 mg/dL Last Edit by Angel Martinez Allison on 06/08/23 08:49 UA Protein 0 mg/dL Last Edit by Angel Martinez A on 06/08/23 08:49 UA pH 6.0 Last Edit by Angel Martinez A on 06/08/23 08:49 UA Blood 25 Cruz/uL Last Edit by Angel Martinez [facility] on 06/08/23 08:49 1+ Angel Martinez 06/08/23 08:49 UA Specific [place] 1.025 Last Edit by Angel Martinez A on 06/08/23 08:49 UA Ketone Negative Last Edit by Angel Martinez [facility] on 06/08/23 08:49 UA Bilirubin 0 mg/dL Last Edit by Angel Martinez A on 06/08/23 08:49 UA Glucose 0 mg/dL Last Edit by Angel Martinez [facility] on 06/08/23 08:49 Results Reviewed Results Reviewed: Laboratory Last Values Urine pH (Auto) 6.0 06/08/23 08:43 Specific [place] (Auto) 1.025 06/08/23 08:43 Urine Protein (Auto) 0 mg/dL 06/08/23 08:43 Glucose (UA)(Auto) 0 mg/dL 06/08/23 08:43 Urine Ketones (Auto) Negative 06/08/23 08:43 Urine Blood (Auto) 25 Cruz/uL 06/08/23 08:43 Urine Nitrite (Auto) Negative 06/08/23 08:43 Urine Bilirubin (Auto) 0 mg/dL 06/08/23 08:43 Urine Urobilinogen (Auto) 0.2 mg/dL 06/08/23 08:43 Leukocyte Esterase (Auto) 0 Keon/uL 06/08/23 08:43 Date of Service: 05/23/23 Procedure(s): US renal BI Accession Number(s): [id number] cc: [place] Mus[place]~ EXAMINATION: US RETROPERITONEAL LIMITED (RENAL ONLY) CLINICAL INFORMATION: Hematuria. COMPARISON: CT dated 05/14/2023 TECHNIQUE: Real-time imaging by the web sizer FINDINGS: The right kidney is 9.4 x 5 x 4.4 cm. Limited evaluation. No convincing evidence for hydronephrosis. Echogenic focus in the lower pole may represent a nonobstructing stone measures 5 x 6 mm. Echogenic focus upper pole measuring 2 mm may represent a nonobstructing calculus. Left kidney is measuring 12 x 6 x 6 cm. There is hydronephrosis here. Moderate. May well be decreased compared with previous CT but difficult to compare different modalities. Proximal ureter cannot be seen due to bowel gas. Imaging of the bladder shows a right ureteral jet. A left ureteral jet is not seen IMPRESSION: Limited evaluation. There is felt to be hydronephrosis on left which is moderate. This may be decreasing from CT of 05/14/2023 but this cannot be said with certainty. No evidence of ureteral jet on the left Date of Service: 05/14/23 EXAMINATION: CT ABDOMEN AND PELVIS WITHOUT CONTRAST CLINICAL INFORMATION: Bilateral kidney stones. COMPARISON: Ultrasound from today TECHNIQUE: Multidetector volumetric imaging was performed from the superior aspect of the liver through the pubic symphysis. Sagittal and coronal reformatted images were obtained on the technologist's workstation. This CT examination was performed using dose optimization techniques as appropriate, variously including the following: *Automated exposure control *Adjustment of mA and/or kV according to patient size (this includes techniques or standardized protocols for targeted exams where dose is matched to indication/reason for exam; i.e. extremities or head) *Use of iterative reconstruction technique DLP: 560 mGy-cm. FINDINGS: LUNG BASES: The visualized lung bases are unremarkable.? LIVER, GALLBLADDER, AND BILIARY TREE: The liver is normal in size, shape, and attenuation. No focal hepatic lesion or biliary ductal dilatation is present. The gallbladder is unremarkable with no evidence of radiopaque gallstones, gallbladder wall thickening, or obvious pericholecystic inflammatory changes.? PANCREAS: Unremarkable.? SPLEEN: Unremarkable.? ADRENAL GLANDS: Unremarkable.? KIDNEYS AND URETERS: Normal positioning of the kidneys. Cortical thinning at the upper pole of the right kidney. There is mild left hydronephrosis with prominent perinephric stranding. 0.4 cm calculus at the left ureteropelvic junction. This is 16 cm from the posterior axillary line. Additional left lower pole nonobstructing 0.4 cm calculus is 9 cm from the posterior axillary line. There are at least 3 right-sided calculi. The largest is seen anteriorly at the lower pole measuring 1.3 x 0.7 cm, 8.5 cm from the posterior axillary line. This measures 888 Hounsfield units. Right upper pole simple cyst. No specific follow-up recommended.? BLADDER: Normally distended without wall thickening. There is a layering 0.3 cm calcification at the left posterior aspect of the bladder lumen.? GASTROINTESTINAL TRACT: Small hiatal hernia. Normal caliber small bowel. No obstruction. Normal appendix. Scattered colonic diverticulosis throughout the colon. No wall thickening or adjacent inflammation. No free air or free fluid.? ABDOMINAL WALL: No significant hernia is appreciated.? LYMPH NODES: Normal. VASCULAR: Normal caliber aorta with mild atherosclerotic calcification. PELVIC VISCERA: The uterus and adnexa are unremarkable. OSSEOUS STRUCTURES: No acute or suspicious osseous abnormality. Mild degenerative change throughout the spine and of both hips.? IMPRESSION: 1.? Mild left hydronephrosis with a 0.4 cm calculus at the left ureteropelvic junction. Significant left perinephric stranding. 2.? Additional nonobstructing bilateral renal calculi. ? Assessment & Plan Assessment & Plan (1) Hydronephrosis: Code(s): N13.30 - Unspecified hydronephrosis (2) Bilateral kidney stones: Code(s): N20.0 - Calculus of kidney (3) Ureteral stone: Code(s): N20.1 - Calculus of ureter Plan Left hydronephrosis. Left ureteral stone. Patient may have passed stone will repeat renal ultrasound Bilateral renal calculi largest on the right side measuring 13 mm discussed ESWL. Discussed risks to include but not limited to, blood in the urine, bruising to the skin, kidney hematoma, possible need for another procedure if a stone fragment obstructs the ureter while passing, possible need to repeat procedure if stone is not completely fragmented. Consent obtained for Right ESWL Metabolic BRO-- 24 hr urine Orders: Orders AMB Urinalysis Automated Today Z13.9 - Encounter for screening, unspecified Medications: Discontinued naproxen Discontinued Reason: Doctor's Order 375 mg PO BID PRN pain Patient Instructions: The patient had an opportunity to ask questions regarding treatment plan. All questions were answered. Imaging, Laboratory studies and physical exam results were discussed and reviewed in detail. No major barriers to understanding were identified. The patient expressed understanding and agreement with the above treatment plan. The patient is aware they should contact our office by phone for worsening of their current condition or the appearance of new symptoms. Compliance is encouraged with any medications and followup testing that is ordered. It is a privilege to be allowed the opportunity to participate in the urologic care of your patient. If you have any questions or concerns regarding treatment for the above conditions please do not hesitate to contact me. The office telephone contact is [phone]. This note is constructed in part using voice recognition software. While every effort has been made to ensure accuracy backfiller errors may have been included. Yours sincerely, Kike Brito MD Coding Level of Care Code New Pt Level 4 (91312) Diagnoses Hydronephrosis N13.30 Bilateral kidney stones N20.0 Ureteral stone N20.1
== END 2023-06-08 10:25 | disposition home or self-care (01) ==
PROVIDERS: Visit Provider Urology
DX: N13.30 Unspecified hydronephrosis (principal); N20.0 Calculus of kidney; N20.1 Calculus of ureter
CPT/HCPCS: 99204

== ENCOUNTER → 2023-06-08 08:28 | Outpatient (BNVA) | payer MEDICARE, OTHER, SELFPAY | PROVIDERS: Visit Provider Urology | DX: N13.30 Unspecified hydronephrosis (principal); N20.1 Calculus of ureter; N20.0 Calculus of kidney | CPT/HCPCS: 99202 ==

== ENCOUNTER 2023-07-13 08:45 | Outpatient (AMB) | payer MEDICARE, OTHER, SELFPAY ==
--- NOTE | 2023-07-13 03:22 | A.OFFVIS_ITS ---
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 Accompanied by: Self / Same As Patient Allergies Penicillins Allergy (Mild, Verified 07/13/23 08:47) Unknown sulfamethoxazole [From Bactrim] Allergy (Mild, Verified 07/13/23 08:47) Unknown trimethoprim [From Bactrim] Allergy (Mild, Verified 07/13/23 08:47) Unknown latex Allergy (Verified 07/13/23 08:47) Unknown cefuroxime Adverse Reaction (Mild, Verified 07/13/23 08:47) Stomach Upset levofloxacin Adverse Reaction (Verified 07/13/23 08:47) Stomach Upset Medication List - Last Reconciled 07/13/23 by Kike Brito MD lisinopril 20 mg PO DAILY HPI HPI Comments History of Present Illness Details Jamilah is a 68-year-old male who presents today to the office for a follow up for kidney stones. 07/13/2023--He was last seen by me on 06/08/2023 for an evaluation of kidney stones. At that time of evaluation, it was discussed that CT imaging noted bilateral kidney stones, largest was 13mm in the right kidney. ESWL therapy was discussed at that time and scheduled for 08/15/2023. 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 24 hr Urine was collected on 06/23/2023 revealed urine volume 1.72 L, Calcium 31 mg; Oxalate 18 mg, Sodium 92, Citrate 350 mg. I discussed importance of hydrating increasing fluids to 2 -2.5 liters Review of chart: 06/08/2023? Jamilah is a 68-year-old female who is here as a new patient evaluation for kidney stones. The patient had acute onset of left flank pain and was seen in the emergency room on 05/14/2023 which noted a 4 mm left proximal ureteral stone with mild hydronephrosis and bilateral renal calculi. Review of CT imaging:? 4 mm left proximal ureteral stone, 4 mm left renal stone, 3 stones in the right kidney largest 13 mm (in review of the films the other 2 stones are about 3 to 4 mm) The patient thinks she passed the left ureteral stone she went back to the ED on 05/23/2023 passing clots, she states that she was told at that time that she was likely passing the stone. In review of the renal ultrasound done on 05/23/2023 there is moderate left hydronephrosis, left ureteral jet not visualized. Examination today there is mild left CVA tenderness no left side or bladder tenderness. Urinalysis 1+ blood no signs of infection Plan:? Left hydronephrosis.? Left ureteral stone.? Patient may have passed stone will repeat renal ultrasound Bilateral renal calculi largest on the right side measuring 13 mm discussed ESWL. Discussed risks to include but not limited to, blood in the urine, bruising to the skin, kidney hematoma, possible need for another procedure if a stone fragment obstructs the ureter while passing, possible need to repeat procedure if stone is not completely fragmented. Consent obtained for Right ESWL. Metabolic BRO-- 24 hr urine?? 07/13/23 Plan: To reschedule the right ESWL. Patient states that she is unable to schedule OR on 08/15/2023. Continue with adequate fluid hydration and diet modifications to reduce kidney stones formation. Advised to take low sodium diet and low oxalate diet. [facility] Medical History HTN (hypertension) UTI (urinary tract infection) Surgical History No pertinent past surgical history Family History Father No problems noted. Mother Kidney calculi Social History Alcohol intake: current Alcohol intake frequency: holidays/special occasions only Patient Tobacco Use Status: Never used Tobacco Review of Systems Const All systems reviewed & are unremarkable except as noted in HPI and below Reports no additional complaints Eyes Reports no additional complaints ENT Reports no additional complaints Card Denies dyspnea Resp Denies cough and Denies dyspnea GI Reports no additional complaints Reports no additional complaints Musc Reports no additional complaints Skin/Breast Denies rash and Denies unusual bruising Neuro Reports no additional complaints Psych Reports no additional complaints Endo Reports no additional complaints Manuel/Lymph Reports no additional complaints Aller/Immun Reports no additional complaints Results AMB Urinalysis, Automated UA Leukoctes 0 Keon/uL Last Edit by Angel [facility] on 07/13/23 09:14 UA Nitrite Negative Last Edit by Angel [facility] on 07/13/23 09:14 UA Urobilinogen 0.2 mg/dL Last Edit by Angel [facility] on 07/13/23 09:1 4 UA Protein 0 mg/dL Last Edit by Angel [facility] on 07/13/23 09:14 UA pH 6.0 Last Edit by Angel [facility] on 07/13/23 09:14 UA Blood 0 Cruz/uL Last Edit by Angel [facility] on 07/13/23 09:14 UA Specific [place] 1.025 Last Edit by Angel [facility] on 07/13/23 09: 14 UA Ketone Negative Last Edit by Angel [facility] on 07/13/23 09:14 UA Bilirubin 0 mg/dL Last Edit by Angel [facility] on 07/13/23 09:14 UA Glucose 0 mg/dL Last Edit by Angel [facility] on 07/13/23 09:14 Results Reviewed Results Reviewed: Laboratory Last Values Urine pH (Auto) 6.0 07/13/23 08:48 Specific [place] (Auto) 1.025 07/13/23 08:48 Urine Protein (Auto) 0 mg/dL 07/13/23 08:48 Glucose (UA)(Auto) 0 mg/dL 07/13/23 08:48 Urine Ketones (Auto) Negative 07/13/23 08:48 Urine Blood (Auto) 0 Cruz/uL 07/13/23 08:48 Urine Nitrite (Auto) Negative 07/13/23 08:48 Urine Bilirubin (Auto) 0 mg/dL 07/13/23 08:48 Urine Urobilinogen (Auto) 0.2 mg/dL 07/13/23 08:48 Leukocyte Esterase (Auto) 0 Keon/uL 07/13/23 08:48 Assessment & Plan Assessment & Plan (1) Bilateral kidney stones: Code(s): N20.0 - Calculus of kidney Plan: To reschedule the right ESWL.? Patient states that she is unable to schedule OR on 08/15/2023. Continue with adequate fluid hydration and diet modifications to reduce kidney stones formation. Advised to take low sodium diet and low oxalate diet. Orders: Orders AMB Urinalysis Automated 07/13/23 Z13.9 - Encounter for screening, unspecified Patient Instructions: The patient had an opportunity to ask questions regarding treatment plan. All questions were answered. Imaging, Laboratory studies and physical exam results were discussed and reviewed in detail. No major barriers to understanding were identified. The patient expressed understanding and agreement with the above treatment plan.? ? ? The patient is aware they should contact our office by phone for worsening of their current condition or the appearance of new symptoms. Compliance is encouraged with any medications and followup testing that is ordered.? ? ? It is a privilege to be allowed the opportunity to participate in the urologic care of your patient. If you have any questions or concerns regarding treatment for the above conditions please do not hesitate to contact me. The office telephone contact is [phone].? ? ? This note is constructed in part using voice recognition software. While every effort has been made to ensure accuracy associate designer errors may have been included.? ? ? Yours sincerely,? ? ? Kike Brito MD? ? Coding Level of Care Code Est Pt Level 3 (66627) Diagnoses Bilateral kidney stones N20.0
== END 2023-07-13 09:26 | disposition home or self-care (01) ==
PROVIDERS: Visit Provider Urology
DX: N20.0 Calculus of kidney (principal)
CPT/HCPCS: 99213

== ENCOUNTER → 2023-07-13 08:45 | Outpatient (BNVA) | payer MEDICARE, OTHER, SELFPAY | PROVIDERS: Visit Provider Urology | DX: N20.0 Calculus of kidney (principal); N39.0 Urinary tract infection, site not specified; I10 Essential (primary) hypertension | CPT/HCPCS: 99212 ==

== ENCOUNTER 2023-09-02 08:30 | Day surgery (SDC) | payer MEDICARE, OTHER, SELFPAY ==
[2023-09-02] VITALS (8 sets, daily range): BP systolic 108–227; BP diastolic 68–92; PULSE 69–76; RESP 14–20; TEMP 36.2–37.6; O2SAT 97–99; BMI 25.6
--- NOTE | 2023-09-02 09:42 | P.CONAN_ITS ---
[facility] Active Problems Active Problems: All Active Problems (Updated 07/13/23 @ 12:45 by Wilian Diaz) Urinary incontinence, mixed (Acute) Ureteral stone (Acute) Bilateral kidney stones (Acute) Hydronephrosis (Acute) Past Medical History Medical History (Updated 07/13/23 @ 12:45 by Wilian Diaz) HTN (hypertension) UTI (urinary tract infection) Family History Family History Father No problems noted. Mother Kidney calculi Family history of problems with anesthesia: No Surgical History Surgical History (Updated 09/02/23 @ 09:10 by Kayli Dhillon RN) History of surgery on right wrist History of Problems with Anesthesia: No Social History Social History Alcohol intake: current Alcohol intake frequency: holidays/special occasions only Patient Tobacco Use Status: Never used Tobacco Use of substances other than those prescribed or required for medical reasons: No Are you DNR?: No Advance Directives: No Advance Directives Information Provided: Yes Meds Allergies Allergy/AdvReac Type Severity Reaction Status Date / Time Penicillins Allergy Mild Rash Verified 09/02/23 09:07 sulfamethoxazole Allergy Mild Hives Verified 09/02/23 09:09 [From Bactrim] trimethoprim [From Bactrim] Allergy Mild Hives Verified 09/02/23 09:09 latex Allergy Hives Verified 09/02/23 09:07 cefuroxime AdvReac Mild Stomach Verified 07/13/23 08:47 Upset levofloxacin AdvReac Unknown Verified 09/02/23 09:07 tamsulosin [From Flomax] AdvReac Dizziness Verified 09/02/23 09:08 Home Medications Medication Instructions Recorded Confirmed Last Taken Type lisinopril 20 mg tablet 20 mg PO DAILY 06/08/23 09/02/23 Unknown History Exam Exam Date and Time: September 02, [id number] Height,Weight and Vital Signs: Height 5 ft 5 in Weight 69.853 kg Last Vital Signs Temp 99.7 F 09/02/23 09:23 Pulse 72 09/02/23 09:28 Resp 16 09/02/23 09:23 BP 227/92 H 09/02/23 09:28 Pulse Ox 99 09/02/23 09:23 O2 Del Method Room Air 09/02/23 09:23 Airway Mallampati Class: III TM Dist: >3cm Neck ROM: Full Assessment and Plan Assessment Anesthesia Assessment: Anesthesia Plan Discussed and Chart Reviewed Final Anesthetic Review Family History of Problems with Anesthesia: No History of Problems with Anesthesia: No NPO: Yes ASA Class: II Final Preanesthetic Review: No Changes in Pt Med Stat, Meds/Allgs Chart Review ed, Consent Obtained/Reviewed and Anes Risks/Benef Reviewed Patient Risk: Low Procedure Risk: Low Anesthetic Plan Anesthetic Plan: GA Disposition: Standard PACU
[2023-09-02] MEDS: Lactated Ringers 500 ML 999 ML IV (09:49)
--- NOTE | 2023-09-02 12:12 | W.PM.OPN ---
Operative Note Operative Note Date of Service: 09/02/23 Narrative: PreOperative Diagnosis:? ? Right Renal calculi Post Operative Diagnosis:?Right Renal calculi Procedure:?Right? ESWL Surgeon:?Dr Kike Brito Anesthesia:? General Indications for procedure: The patient understands there is a risk of bruising or hematoma to the kidney, infection, and stone migration following the procedure and subsequent intervention may be required.? - Imaging 13 mm stone right lower pole Procedure: After informed consent was verified the patient was brought to the operating room and placed in a supine position.? Anesthesia was performed per protocol. Safety pause time-out was performed. Imaging was displayed in the room and laterality confirmed. ESWL was performed.?The stone was visualized on both fluoroscopy and ultrasound.? Shockwave lithotripsy was performed, the first 300 shocks at 60 hertz.? A pause for 2 minutes.? A total of 2500 shocks to a maximum of power of 20 with a maximum rate of 120 hertz.? Good fragmentation of the stone was appreciated. The patient tolerated the procedure well and was transferred to the recovery area upon completion. Complications: None
== END 2023-09-02 14:23 | disposition home or self-care (01) ==
PROVIDERS: PCP Internal Medicine; Visit Provider Urology
PROC: (CPT 50590; principal; 2023-09-02 10:30)
DX: N20.0 Calculus of kidney (principal); N39.46 Mixed incontinence; I10 Essential (primary) hypertension; Z87.440 Personal history of urinary (tract) infections
CPT/HCPCS: 50590; 74018; 88300; J0131; J1100; J1580; J2371; J2405; J3010

== ENCOUNTER → 2023-09-02 08:30 | Outpatient (BNV) | payer MEDICARE, OTHER, SELFPAY | PROVIDERS: PCP Internal Medicine; Visit Provider Urology | DX: R20.0 Anesthesia of skin (principal) | CPT/HCPCS: 50590 ==

== ENCOUNTER 2023-09-23 12:30 | Outpatient (REF) | payer MEDICARE, OTHER, SELFPAY ==
--- NOTE | ~2023-09-23 | XR_ITS ---
EXAMINATION: XR ABDOMEN KUB CLINICAL INDICATION: Renal calculus. COMPARISON: KUB 09/02/2023. TECHNIQUE: AP view of the abdomen. FINDINGS: The previously seen 2 adjacent calculi overlying the lower pole the right kidney are no longer present, and no calculi are seen at this time. The bowel gas pattern is normal with no evidence of ileus or obstruction. Aortoiliac calcification is present. The bones are unremarkable. XR/XR KUB IMPRESSION: Previously seen right renal calculi are no longer present.
== END 2023-09-23 12:31 | disposition home or self-care (01) ==
LOC: HO.XRAY 12:30
PROVIDERS: PCP Internal Medicine; Visit Provider Urology
DX: N20.0 Calculus of kidney (principal)
CPT/HCPCS: 74018

== ENCOUNTER 2023-09-25 14:15 | Outpatient (AMB) | payer MEDICARE, OTHER, SELFPAY ==
--- NOTE | 2023-09-25 14:25 | A.OFFVIS_ITS ---
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 Visit Reasons: 3w/KUB Intake Note: Patient presents today for a follow-up on KUB Results: Meds- Tamsulosin Allergies to Antibiotic- Penicillin's, Sulfa, Bactrim Blood Thinner- None Photographic Platemaker Required: No Accompanied by: Self / Same As Patient Allergies Penicillins Allergy (Mild, Verified 09/25/23 14:26) Rash sulfamethoxazole [From Bactrim] Allergy (Mild, Verified 09/25/23 14:26) Hives trimethoprim [From Bactrim] Allergy (Mild, Verified 09/25/23 14:26) Hives latex Allergy (Verified 09/25/23 14:26) Hives cefuroxime Adverse Reaction (Mild, Verified 09/25/23 14:26) Stomach Upset levofloxacin Adverse Reaction (Verified 09/25/23 14:26) Unknown tamsulosin [From Flomax] Adverse Reaction (Verified 09/25/23 14:26) Dizziness HPI HPI Comments History of Present Illness Details Jamilah is a 68-year-old female who presents today to the office for a follow-up. 09/25/2023? She is followed today for KUB results. She has had right ESWL. She brought stone fragments to the office which will be sent for stone analysis. She states she is doing well. I reviewed the X-ray KUB results from 09/23/2023 revealed that the previous right kidney stone are no longer visualized. 09/25/2023: Plan: Will send stone for analysis. Follow-up in 1 year with X ray KUB at that time. [facility] Medical History (Updated 07/13/23 @ 12:45 by Wilian Diaz) HTN (hypertension) UTI (urinary tract infection) Surgical History History of surgery on right wrist Family History Father No problems noted. Mother Kidney calculi Social History Alcohol intake: current Alcohol intake frequency: holidays/special occasions only Patient Tobacco Use Status: Never used Tobacco Results Reviewed Results Reviewed: Date of Service: 09/23/23 EXAMINATION: XR ABDOMEN KUB CLINICAL INDICATION: Renal calculus. COMPARISON: KUB 09/02/2023. FINDINGS: The previously seen 2 adjacent calculi overlying the lower pole the right kidney are no longer present, and no calculi are seen at this time. The bowel gas pattern is normal with no evidence of ileus or obstruction. Aortoiliac calcification is present. The bones are unremarkable. IMPRESSION: Previously seen right renal calculi are no longer present. Assessment & Plan Assessment & Plan (1) Calculus of kidney: Code(s): N20.0 - Calculus of kidney Plan Will send stone for analysis. Follow-up in 1 year with X ray KUB at that time. Orders: Orders Surgical 09/25/23 N20.0 - Calculus of kidney XR KUB 09/25/23 N20.0 - Calculus of kidney Patient Instructions: The patient had an opportunity to ask questions regarding treatment plan. All questions were answered. Imaging, Laboratory studies and physical exam results were discussed and reviewed in detail. No major barriers to understanding were identified. The patient expressed understanding and agreement with the above treatment plan. The patient is aware they should contact our office by phone for worsening of their current condition or the appearance of new symptoms. Compliance is encouraged with any medications and followup testing that is ordered. It is a privilege to be allowed the opportunity to participate in the urologic care of your patient. If you have any questions or concerns regarding treatment for the above conditions please do not hesitate to contact me. The office telephone contact is [phone]. This note is constructed in part using voice recognition software. While every effort has been made to ensure accuracy operations support representative errors may have been included. Yours sincerely, Kike Brito MD Coding Level of Care Code Global (98499) Diagnoses Calculus of kidney N20.0
== END 2023-09-25 14:54 | disposition home or self-care (01) ==
PROVIDERS: PCP Internal Medicine; Visit Provider Urology
DX: N20.0 Calculus of kidney (principal)
CPT/HCPCS: 99024

== ENCOUNTER 2023-09-25 14:15 | Outpatient (REF) | payer MEDICARE, OTHER, SELFPAY ==
[2023-10-03 16:09] LABS: Stone Source KIDNEY STONE
== END 2023-09-25 14:16 | disposition home or self-care (01) ==
LOC: HO.LNP 14:15
PROVIDERS: PCP Internal Medicine; Visit Provider Urology
DX: N20.0 Calculus of kidney (principal)
CPT/HCPCS: 82365; 88300; 99212

== ENCOUNTER 2025-01-06 14:18 | Emergency (ER) | payer MEDICARE, OTHER, SELFPAY ==
[2025-01-06] VITALS (13 sets, daily range): BP systolic 185–253; BP diastolic 68–104; PULSE 68–82; RESP 13–20; TEMP 36.6–37.3; O2SAT 94–98; BMI 27.0
--- NOTE | ~2025-01-06 | CT_ITS ---
CLINICAL HISTORY: Blood per rectum, red jelly stool R O divertic ble CT angiography abdomen and pelvis with contrast. 3-D post processing. Comparison: None Findings: Aorta, mesenteric/renal arteries, and iliofemoral systems are within normal limits. The lung bases are clear. Unremarkable gallbladder and solid organs. Bilateral punctate urolithiasis. No bowel obstruction, pneumoperitoneum, or pneumatosis. There are diverticula in the descending and sigmoid colon without imaging evidence of diverticulitis. Pelvic contents unremarkable. Normal appendix. The bones are intact. IMPRESSION: No acute findings. This document has been electronically signed by: Julián Ash MD on 01/06/2025 21:03:10
--- NOTE | 2025-01-06 14:53 | ED_ITS ---
HPI - General Adult General Chief complaint: GI Bleed Stated complaint: Blood in Stool (Alot) Time Seen by Provider: 01/06/25 15:10 Source: patient and family (, Gomez) Mode of arrival: ambulatory Limitations: no limitations History of Present Illness ED Provider: Dr. Adiel Shields HPI narrative: 69-year-old female history of hypertension, noncompliant with medications for over a year, who presents emergency department for evaluation of loose bloody stools x2. The patient states that she was normally very regular and has 1 bowel movement per day. She states that 2 days prior she was constipated but did not strain at the stool. She states that this morning she had a loose stool with bright red blood in his stool, she states that the toilet bowl seem to be filled with blood but there was water in the toilet bowl. She states that a proximally 20 minutes later she had another loose bloody stool. The patient denied abdominal pain. She denied lightheadedness, dizziness, or abdominal pain. The patient states that she has not had a colonoscopy. She denies having external hemorrhoids. She denied fever, chills, nausea, vomiting, frequency, urgency or dysuria. The patient states she has been noncompliant with her blood pressure medications for over a year. She states that her systolic blood pressure runs between 160 to 180 mmHg. Related Data Home Medications ?Medication ?Instructions ?Recorded ?Confirmed lisinopril 20 mg tablet 20 mg PO DAILY 06/08/23 09/02/23 Previous Rx's ?Medication ?Instructions ?Recorded amlodipine 10 mg tablet 10 mg PO DAILY #90 tabs 01/07/25 hydrochlorothiazide 25 mg tablet 25 mg PO DAILY #90 tabs 01/07/25 Allergies Allergy/AdvReac Type Severity Reaction Status Date / Time Penicillins Allergy Mild Rash Verified 01/06/25 14:56 sulfamethoxazole Allergy Mild Hives Verified 01/06/25 14:56 [From Bactrim] trimethoprim [From Bactrim] Allergy Mild Hives Verified 01/06/25 14:56 latex Allergy Hives Verified 01/06/25 14:56 cefuroxime AdvReac Mild Stomach Verified 01/06/25 14:56 Upset levofloxacin AdvReac Unknown Verified 01/06/25 14:56 tamsulosin [From Flomax] AdvReac Dizziness Verified 01/06/25 14:56 Review of Systems 2 Review of Systems: Yes all other systems are reviewed and are negative [facility] Past Medical History [facility] Narrative: Social history: She denies tobacco use. She states she rarely drinks alcohol. She denies drug use. Medical History (Updated 01/06/25 @ 18:05 by Adiel Shields MD) HTN (hypertension) UTI (urinary tract infection) Surgical History History of surgery on right wrist Family History Family History Father No problems noted. Mother Kidney calculi Social History Social History Alcohol intake: current Alcohol intake frequency: holidays/special occasions only Patient Tobacco Use Status: Never used Tobacco Smoked in Last 30 Days: No Use of substances other than those prescribed or required for medical reasons: No Advance Directives: No Advance Directives Information Provided: No Do you have a plan to hurt others: No Plan Physical Exam ED Vital Signs: Vital Signs - 24 hr 01/06/25 14:52 01/06/25 15:18 01/06/25 17:34 Temperature 98 F 98.9 F Pulse Rate 78 78 82 Respiratory Rate 19 15 Blood Pressure 253/99 H 235/82 H 220/104 H Pulse Oximetry 98 97 Oxygen Delivery Method Room Air Room Air 01/06/25 17:52 01/06/25 18:12 01/06/25 19:03 Temperature 99.2 F Pulse Rate 75 78 74 Respiratory Rate 19 16 Blood Pressure 207/80 H 211/88 H 185/68 H Pulse Oximetry 97 97 Oxygen Delivery Method Room Air Room Air 01/06/25 20:24 01/06/25 21:54 01/06/25 22:45 Temperature 99.0 F Pulse Rate 79 76 70 Respiratory Rate 15 20 13 Blood Pressure 188/83 H 225/92 H Pulse Oximetry 94 97 97 Oxygen Delivery Method Room Air Room Air 01/06/25 22:46 01/06/25 23:10 01/06/25 23:44 Temperature Pulse Rate 68 79 Respiratory Rate 15 Blood Pressure 207/85 H 200/86 H 185/86 H Pulse Oximetry 98 Oxygen Delivery Method Room Air 01/06/25 23:55 01/07/25 00:32 Temperature Pulse Rate 88 Respiratory Rate Blood Pressure 185/86 H 188/78 H Pulse Oximetry Oxygen Delivery Method BMI result Body Mass Index 27.0 Vital signs revealed an elevated blood pressure of 253/99. Exam: General: Awake, alert in no distress Head: Normocephalic, atraumatic EENT: PERRL, Lids normal, sclera normal, conjunctiva normal, nose normal , ears normal, throat without erythema or exudates Neck: Supple, no adenopathy Lung: breath sounds symmetric, no wheezing, rales or rhonchi Chest: symmetric movement, nontender Heart: regular rate and rhythm, normal S1, S2 no murmurs or rubs Abdomen: soft, non-tender, nondistended, normal bowel sounds Rectal: No external hemorrhoids noted, sphincter tone was normal, no rectal mass felt on digital exam, stool had a ?red jelly ? appearance and was strongly Hemoccult positive Back: no CVAT Extremities: no deformities, moves all extremities symmetrically Neuro: Awake, alert, oriented, normal speech Psych: Pleasant, cooperative Course Course Course Narrative: This is a rapid medical exam performed by Opal Amato PA-C. 69-year-old female with a history of kidney stones, hypertension, who presents with lower GI bleed. Patient states she had loose stool this morning with a large amount of bright red blood. Patient had 1 episode, does not have any belly pain, no nausea vomiting or fever. We will be screening basic labs, the patient is stable and can return to the weight room pending her full medical assessment. Medications Administered Discontinued Medications Generic Name Dose Route Start Last Admin Trade Name Freq PRN Reason Stop Dose Admin Amlodipine Besylate 10 mg 01/06/25 23:51 01/06/25 23:55 Amlodipine Besylate 10 Mg Tablet PO 01/06/25 23:52 10 mg ONCE ONE Administration Protocol Iohexol 85 ml 01/06/25 19:54 01/06/25 19:54 Iohexol 350 Mg/Ml 100 Ml Infus..Btl IV 01/06/25 19:55 85 ml ONCE ONE Administration Labetalol HCl 5 mg 01/06/25 17:19 01/06/25 17:34 Labetalol Hcl 100 Mg/20 Ml Vial IVPUSH 01/06/25 17:20 5 mg ONCE ONE Administration Labetalol HCl 5 mg 01/06/25 18:02 01/06/25 18:12 Labetalol Hcl 100 Mg/20 Ml Vial IVPUSH 01/06/25 18:03 5 mg ONCE ONE Administration Lisinopril 40 mg 01/06/25 22:58 01/06/25 23:10 Lisinopril 40 Mg Tablet PO 01/06/25 22:59 40 mg ONCE ONE Administration Protocol Medical Decision Making Medical Decision Making MDM Narrative: 69-year-old female history of hypertension, noncompliant with medications for over a year, who presents emergency department for evaluation of loose bloody stools x2 with no other significant symptoms or abdominal pain. Vital signs did reveal an elevated blood pressure but the patient was been noncompliant with her medications for a year he states and her systolic blood pressure runs between 160 to 180 mmHg. Abdominal exam was unremarkable. Rectal examination revealed red jelly like stool which was strongly Hemoccult positive. Differential diagnosis: ?Includes but is not limited to diverticular bleed, internal hemorrhoid, polyp bleed, AVM, anemia, electrolyte abnormalities Course: 18:00 My interpretation patient's laboratory evaluation is as follows: CBC was normal with an H&H of 13.6 and 41. BUN slightly elevated at 18. Given the character of the patient's stool I am concerned that she may have a diverticular bleed. This is the patient's 1st episode of the lower GI bleed and I am concerned that she may be actively bleeding therefore I did order a CT GI bleed abdomen with and without contrast. The patient's hypertension he was also treated with labetalol 5 mg IV with a goal of getting her blood pressure to the 160-180 range. I also ordered a repeat 4 hour H&H which will be drawn at 19:45 hours. At the end of my shift, the patient's care was turned over to my colleague, Dr. Latesha Treadwell. If sign-out from my colleague CT scan does not show any acute abnormality, diverticula present without evidence of diverticulitis Patient states that she has not had any active GI bleed here in the emergency room. Also, it was noted that patient's blood pressure was in the 200s. Received 2 doses of labetalol IV. Then, patient received a dose of p.o. amlodipine and 40 mg of lisinopril. Patient's blood pressure 1 80s systolic. I discussed with the patient that ideally we should keep her at least for observation to help control her blood pressure a bit better, does not have to be perfect. My concern is also that patient has no PCP to follow-up. However, patient states that she would really prefer to go home. She will schedule an appointment with the PCP and then will also call Gastroenterology. Dr. Corrales from the Medicine team is willing to admit the patient. However, as mentioned above, patient would really like to go home. Patient agreeable to return to emergency room if she has any ongoing or worsening symptoms. H&H stable, patient well-appearing, no abdominal pain, denies any rectal bleeding for last several hours since she has been in the emergency Admission/Observation Consideration of admission/observation: Escalation of care including admission/observation considered (Yes) Lab Data MDM Lab Attestation statement: I reviewed the patient's lab results. 01/06/25 19:32 01/06/25 15:43 Labs: Lab Results 01/06/25 01/06/25 01/06/25 Range/Units 15:43 17:46 19:32 WBC 9.6 (4.8-10.8) X10*3/uL RBC 4.65 (4.20-5.50) X10*6/uL Hgb 13.6 12.9 (12.0-16.0) g/dl Hct 41.1 37.9 (37.0-47.0) % MCV 88.4 (80.0-98.0) fL MCH 29.2 (27.0-33.0) pg MCHC 33.1 (31.0-35.0) g/dl RDW 13.3 (11.0-16.0) % Plt Count 335 D (160-400) X10*3/uL MPV 9.8 (9.4-12.3) fL Immature Gran % (Auto) 0.3 (0.0-0.4) % Neut % (Auto) 79.4 H (45-73) % Lymph % (Auto) 13.6 L (20-40) % [place] % (Auto) 5.8 (2-11) % Eos % (Auto) 0.5 (0-4) % Baso % (Auto) 0.4 (0-2) % Lymph # (Auto) 1.3 (1.2-4.9) X10*3/uL [place] # (Auto) 0.6 (0.1-1.2) X10*3/uL Eos # (Auto) 0.1 (0.0-0.4) X10*3/uL Baso # (Auto) 0.0 (0.0-0.2) X10*3/uL Abs Immat Gran (auto) 0.03 (0.00-0.03) X10*3/uL Absolute Neuts (auto) 7.6 (2.0-8.3) x10*3/uL Absolute Nucleated RBC 0.000 (0.0-0.012) X10*3/uL Nucleated RBC % (auto) 0.0 (0.0-0.2) /100WBC PT 11.2 (10.9-12.4) SEC INR 1.0 (0.9-1.1) Sodium 141 (135-145) mmol/L Potassium 4.0 (3.3-5.1) mmol/L Chloride 109 H (96-108) mmol/L Carbon Dioxide 24 (22-29) mmol/L Anion Gap 12 (12-20) BUN 18 H (9-16) mg/dL Creatinine 0.87 (0.5-1.4) mg/dL Estim Creat Clear Calc 62.1 Estimated GFR > 60 Random Glucose 105 (60-115) mg/dL Calcium 10.2 (8.4-10.2) mg/dL Magnesium 1.9 (1.6-2.6) mg/dL Total Bilirubin 0.3 (0.0-1.0) mg/dL AST 20 (5-31) U/L ALT 11 (0-31) U/L Alkaline Phosphatase 104 (39-117) U/L Total Protein 7.8 (6.5-8.0) g/dL Albumin 4.2 (3.5-5.0) g/dL Blood Type O Positive Antibody Screen NEGATIVE Independent Historian Clinical information obtained from an independent historian. History obtained from or confirmed by: Spouse Chronic Conditions Patient?s care impacted by: Hypertension Discharge Plan Discharge Clinical Impression: Acute lower gastrointestinal bleeding, Noncompliance with medications Hypertension Qualifiers: Hypertension type: primary hypertension Qualified Code(s): I10 - Essential (primary) hypertension Patient Disposition: Home, Self-Care Instructions: Gastrointestinal Bleeding (ED) Additional Instructions: Please follow-up with your primary care physician tomorrow. If you have any worsening or new symptoms, please return to the emergency room or call 911 Prescriptions: New hydrochlorothiazide 25 mg tablet 25 mg PO DAILY Qty: 90 0RF amlodipine 10 mg tablet 10 mg PO DAILY Qty: 90 0RF No Action lisinopril 20 mg tablet 20 mg PO DAILY Referrals: Dianne Goldstein MD [Physician] - 01/09/25 Print Language: Kiswahili
--- NOTE | 2025-01-06 15:31 | MHC.EDTECH ---
at this time this tech changed over pt into hospital gown and placed her on quality assurance monitor body, VS taken BP increased, RN aware
[2025-01-06 15:48] LABS: MANUAL DIFF FLAG NO
[2025-01-06 15:50] LABS: Basophils Percent Auto 0.4 % (0-2); Eosinophils Absolute Auto 0.1 X10*3/uL (0.0-0.4); Eosinophils Percent Auto 0.5 % (0-4); Hematocrit 41.1 % (37.0-47.0); Hemoglobin 13.6 g/dl (12.0-16.0); Imm Gran Abs Auto 0.03 X10*3/uL (0.00-0.03); Imm Gran Pct Auto 0.3 % (0.0-0.4); Lymphocytes Absolute Auto 1.3 X10*3/uL (1.2-4.9); Lymphocytes Percent Auto 13.6 % (20-40); Mean Corpuscular HGB Conc 33.1 g/dl (31.0-35.0); Mean Corpuscular Hemoglobin 29.2 pg (27.0-33.0); Mean Corpuscular Volume 88.4 fL (80.0-98.0); Mean Platelet Volume 9.8 fL (9.4-12.3); Monocytes Absolute Auto 0.6 X10*3/uL (0.1-1.2); Monocytes Percent Auto 5.8 % (2-11); Neutrophils Absolute Auto 7.6 x10*3/uL (2.0-8.3); Neutrophils Percent Auto 79.4 % (45-73); Platelet Count 335 X10*3/uL (160-400); Red Blood Count 4.65 X10*6/uL (4.20-5.50); Red Cell Distribution Width 13.3 % (11.0-16.0); White Blood Count 9.6 X10*3/uL (4.8-10.8)
[2025-01-06 15:56] LABS: Prothrombin Time 11.2 SEC (10.9-12.4)
[2025-01-06 16:18] LABS: Alanine Aminotransferase 11 U/L (0-31); Albumin Level 4.2 g/dL (3.5-5.0); Anion Gap 12 (12-20); Aspartate Amino Transferase 20 U/L (5-31); Bilirubin Total 0.3 mg/dL (0.0-1.0); Blood Urea Nitrogen 18 mg/dL (9-16); Calcium 10.2 mg/dL (8.4-10.2); Carbon Dioxide 24 mmol/L (22-29); Chloride 109 mmol/L (96-108); Creatinine Clr Calc Pharmacy 62.1; Estimated Glomerular Filt Rate > 60; Glucose Random 105 mg/dL (60-115); Magnesium 1.9 mg/dL (1.6-2.6); Sodium 141 mmol/L (135-145); Total Protein 7.8 g/dL (6.5-8.0)
[2025-01-06 16:42] LABS: Alkaline Phosphatase 104 U/L (39-117)
[2025-01-06] MEDS: Labetalol HCL 100 MG/20 ML VIAL IVPUSH ×2 (17:34→18:12)
--- NOTE | 2025-01-06 19:09 | PC.NURSE ---
assumed care of patient at this time, patient no complaints at this time waiting to go to CT scan
[2025-01-06 19:38] LABS: Hematocrit 37.9 % (37.0-47.0); Hemoglobin 12.9 g/dl (12.0-16.0)
[2025-01-06] MEDS: iohexoL 350 MG/ML 100 ML INFUS..BTL 85 ML IV (19:54)
[2025-01-06] MEDS: lisinopriL 40 MG TABLET PO (23:10)
[2025-01-06] MEDS: amLODIPine Besylate 10 MG TABLET PO (23:55)
[2025-01-07 00:32] VITALS: BP 188/78; PULSE 88
[2025-01-07 01:01] VITALS: BP 181/75; PULSE 76; RESP 16; TEMP 36.6; O2SAT 97
[2025-01-07 01:15] VITALS: BP 181/75; PULSE 76; RESP 16; TEMP 36.6; O2SAT 97
== END 2025-01-07 01:16 | disposition home or self-care (01) ==
PROVIDERS: Emergency Medicine Emergency Medical Services; Physician Assistant Medical; Emergency Provider Emergency Medicine
DX: K92.2 Gastrointestinal hemorrhage, unspecified (principal); R19.7 Diarrhea, unspecified; I10 Essential (primary) hypertension; Z91.148 Patient's other noncompliance with medication regimen for other reason; Z87.442 Personal history of urinary calculi; Z79.899 Other long term (current) drug therapy
CPT/HCPCS: 36415; 74178; 80053; 83735; 85014; 85018; 85025; 85610; 86850; 86900; 86901; 96374; 96376; 99284; J1920; Q9967

== ENCOUNTER → 2025-01-06 17:15 | Outpatient (BNV) | payer MEDICARE, OTHER, SELFPAY | PROVIDERS: Emergency Provider Emergency Medicine; Visit Provider Specialist | DX: K62.5 Hemorrhage of anus and rectum (principal) | CPT/HCPCS: 74178 ==